=== PATIENT | male | born 1985 | race Caucasian/White ===

== ENCOUNTER 2021-09-15 12:11 | Emergency (ER) | payer OTHER ==
[~2021-09-15] VITALS: Ht 182.9 cm; Wt 96.2 kg
--- NOTE | 2021-09-15 12:25 | PHYS DOC ---
Adult General Chief Complaint Chief Complaint: CHEST PAIN HPI HPI Patient is a 36-year-old male presents to the emergency department complaining of left-sided chest pain without radiation he noticed when he woke up yesterday morning. Patient states he has been battling a month and a half long coughing s [place], states a month and a half ago he had severe body aches with nonproductive cough, runny nose, sore throat, all symptoms resolved after a few weeks however reports his cough has lingered on, worse at night. Reports his left-sided chest pain at a 4 out of 10, worse when he bends over or exhales deeply. Reports taking 400 mg of ibuprofen this morning at approximately 9 AM without relief. Denies shortness of breath, nasal or chest congestion, nausea, vomiting, diarrhea, diaphoretic episodes, dizzy spells or syncopal episodes. Patient does report having high blood pressure issues however has not been started on medications reporting when his blood pressure is scrutinized he always "falls under the threshold of starting medication ". Patient denies other physical complaints or physical concerns. Patient states he does not smoke cigarettes or ingest illicit drugs, occasional alcohol use. Denies medication allergies. Denies prescription medication at home. Review of Systems Review of Systems 14 body systems of review of systems have been reviewed. See HPI for pertinent positives and negative responses, otherwise all other systems are negative, nonpertinent or noncontributory. Constitutional: Negative except as outlined in HPI above. Skin: Negative except as outlined in HPI above. Eyes: Negative except as outlined in HPI above. HENT: Negative except as outlined in HPI above. Respiratory: Negative except as outlined in HPI above. Cardiovascular: Negative except as outlined in HPI above. GI: Negative except as outlined in HPI above. : Negative except as outlined in HPI above. Musculoskeletal: Negative except as outlined in HPI above. Integument: Negative except as outlined in HPI above. Neurologic: Negative except as outlined in HPI above. Endocrine: Negative except as outlined in HPI above. Lymphatic: Negative except as outlined in HPI above. Psychiatric: Negative except as outlined in HPI above. Allergies Allergies Allergies Coded Allergies Type Severity Reaction Last Updated Verified No Known Drug Allergies 09/15/21 No Physical Exam Physical Exam Constitutional: Well developed, well nourished, no acute distress, non-toxic appearance. 36-year-old male in no apparent distress. HENT: Normocephalic, atraumatic. Eyes: Conjunctiva normal, no discharge. Neck: Normal range of motion, no stridor. Cardiovascular: No cyanosis appreciated, distal cap refill less than 2 seconds. Heart sounds S1-S2 to auscultation. Lungs & Thorax: Patient is in no respiratory distress, no audible adventitious lung sounds appreciated. Lung sounds clear to auscultate all lung [place], no adventitious lung sounds appreciated. Normal work of breathing. Abdomen: Nontender, no abnormalities noted. Skin: Warm, dry, no erythema, no rash. Back: No tenderness, no deformities. Extremities: No tenderness, no cyanosis, no clubbing, ROM intact, no edema. Neurologic: Alert and oriented X 3, normal motor function, normal sensory function, no focal deficits noted. Psychologic: Affect normal, judgement normal, mood normal. Current Patient Data Vital Signs Vital Signs Date Time Temp Pulse Resp B/P (MAP) Pulse Ox O2 Delivery O2 Flow Rate FiO2 09/15/21 12:11 80 16 149/105 (120) 100 Room Air EKG EKG EKG performed at 1217 by ED nursing staff shows a normal sinus rhythm without ectopy heart rate 35 bpm, UT interval 0.156, QTc interval 0.402, no acute STEMI, no ACS, no acute ischemia appreciated, EKG interpreted by ED attending physician Dr. Jacques. Radiology/Procedures Radiology/Procedures PATIENT: HENRIETTA RODRIGUEZ ACCOUNT: [id number] : 1985 LOCATION: ER AGE: 36 SEX: M EXAM STATUS: REG ER ORD. PHYSICIAN: DENISSE RILEY APRN REASON: Chest pain PROCEDURE: CHEST AP ONLY AP chest. HISTORY: Chest pain AP view was taken of the chest. Lungs are clear. Heart is normal in size. There is no pleural effusion. IMPRESSION: 1. No acute infiltrates. Electronically signed by: Juanjose Silverman MD (09/15/2021 12:58 PM) [facility] Heart Score C/O Chest Pain: Yes HEART Score for Chest Pain: HEART Score for Chest Pain Response (Comments) Value History Slighlty/Non-Suspicious 0 ECG Normal 0 Age < 45 0 Risk Factors No Risk Factors 0 Troponin < Normal Limit 0 Total 0 Risk Factors: Risk Factors: DM, Current or recent (<one month) smoker, HTN, HLP, family history of CAD, obesity. Risk Scores: Risk Factors: DM, Current or recent (<one month) smoker, HTN, HLP, family history of CAD, obesity. Course & Med Decision Making Course & Med Decision Making Pertinent Labs and Imaging studies reviewed. (See chart for details) 36-year-old male, vital signs reviewed, resents emergency department concerning chest pain since waking up yesterday. Patient's physical examination is unremarkable, patient does have history of what seems to be a viral illness that started approximately a month and a half ago, as symptoms have resolved other than a lingering cough. Patient's chest pain is most likely musculoskeletal in nature however will order a cardiorespiratory work-up with D-dimer. Patient does have hypertensive initial blood pressure, patient does report a history of this however states he has not been started on blood pressure medications as his blood pressure seems to be "under the threshold "when blood pressure medications are considered by previous healthcare providers. ED planning to monitor blood pressure while labs are pending. Will give IV Toradol for chest pain of 4 out of 10. Upon reevaluation of the patient, patient blood pressure 145/91, discussed with patient follow-up with primary care regarding elevated blood pressure, patient reports his pain is now a 0 out of 10. Discussed with patient x-rays EKGs and lab work unremarkable and nonconcerning for acute cardiorespiratory process, a COVID-19 test is pending however very low likelihood of infection. Discussed with patient using [id number] ibuprofen for returning or ongoing chest discomfort, diagnosis of musculoskeletal chest wall pain most likely exacerbated by lingering cough from a viral illness 6 weeks ago. Patient gave verbal understanding of and is amenable to ED discharge planning. Strict follow-up with primary care, return to ER precautions or concerns. Discussed with the patient all findings and diagnostic testing as well as the need to follow-up with their primary care provider for further evaluation and treatment or return to the ED if any new or worsening symptoms. Strict return precautions were also discussed at length, the patient voiced understanding and agreement with the discharge planning. The patient was nontoxic in appearance, in no apparent distress, and hemodynamically stable at the time of disposition. Dragon Disclaimer Dragon Disclaimer This electronic medical record was generated, in whole or in part, using a voice recognition dictation system. Departure Departure: Impression: Primary Impression: Musculoskeletal chest pain Disposition: HOME / SELF CARE / HOMELESS Condition: GOOD Referrals: PIETER BARNHART (PCP) Patient Instructions: Chest Wall Pain Additional Instructions: You are seen today in the emergency department for chest pain that started yesterday. An extensive cardiorespiratory work-up was performed in the ER today, the results were reassuring that that you are not having a heart attack, pneumonia, or other cardiorespiratory process. There are no broken bones, no signs of infection in your blood. As we discussed, this is most likely a chest wall pain that has exacerbated from your viral illness earlier in the month. Please continue to take [id number]-[id number] ibuprofen for returning discomfort, follow-up with your primary care at the [facility] for ongoing chest discomfort and for evaluation of your elevated blood pressure problems. Return to the emergency department for worsening symptoms or other concerns. Thank you for visiting our Emergency Department. It was a pleasure taking care of you today in the emergency department and we appreciate you trusting us with your care. If any additional problems come up don't hesitate to return to visit us. Please follow up with your primary care provider so they can plan additional care if needed and know about the problem that you had. If symptoms worsen come back to the Emergency Department. Any concerning symptoms that start such as chest pain, shortness of air, weakness or numbness on one side of the body, running high fevers or any other concerning symptoms return to the ER. EMERGENCY DEPARTMENT GENERAL DISCHARGE INSTRUCTIONS Thank you for coming to [facility] (ED) today and trusting us with you care. We trust that you had a positivie experience in our Emergency Department. If you wish to speak to the department management, you may call the director at [phone]. YOUR FOLLOW UP INSTRUCTIONS ARE FOLLOWS: 1. Do you have a private Doctor? If you do not have a private doctor, please ask for a resource list of physicians or clinics that may be able to assist you with follow up care. 2. The Emergency Physician has interpreted your x-rays. The X-Ray specialist will also review them. If there is a change in the findings, you will be notified in 48 hours when at all possible. 3. A lab test or culture has been done, your results will be reviewed and you will be notified if you need a change in treatment. ADDITIONAL INSTRUCTIONS AND INFORMATION: 1. Your care today has been supervised by a physician who is specially trained in emergency care. Many problems require more than one evaluation for a complete diagnosis and treatment. We recommend that you schedule your follow up appointment as recomm ended to ensure complete treatment of you illness or injury. If you are unable to obtain follow up care and continue to have a problem, or if your condition worsens, we recommend that you return to the ED. 2. We are not able to safely determine your condition over the phone nor are we able to give sound medical advice over the phone. For these safety reasons, if you call for medical advice we will ask you to come to the ED for further evaluation. 3. If you have any questions regarding these discharge instructions please call the ED at [phone]. SAFETY INFORMATION: In the interest of safety, wellness, and injury prevention; we encourage you to wear your sealbelt, if you smoke; quite smoking, and we encourage family to use a protective helmet for bicycling and other sporting events that present an increased risk for head injury. IF YOUR SYMPTOMS WORSEN OR NEW SYMPTOMS DEVELOP, OR YOU HAVE CONCERNS ABOUT YOUR CONDITION; OR IF YOUR CONDITION WORSENS WHILE YOU ARE WAITING FOR YOUR FOLLOW UP APPOINTMENT; EITHER CONTACT YOUR PRIMARY CARE DOCTOR, THE PHYSICIAN WHOSE NAME AND NUMBER YOU WERE GIVEN, OR RETURN TO THE ED IMMEDIATELY. DENISSE RILEY APRN Sep 15, 2021 12:25
[2021-09-15] MEDS ORDERED: KETOROLAC 30 MG/ML VIAL. IVP ONE (12:45)
--- NOTE | 2021-09-15 13:01 | RAD ---
AP chest. HISTORY: Chest pain AP view was taken of the chest. Lungs are clear. Heart is normal in size. There is no pleural effusio n. IMPRESSION: 1. No acute infiltrates. Electronically signed by: Juanjose Silverman MD (09/15/2021 12:58 PM) [facility]
[2021-09-15 13:19] LABS: BASO % 1 % (0-3); EOS # 0.1 x10^3/uL (0.0-0.7); EOS % 1 % (0-3); HEMATOCRIT 46.6 % (39.0-53.0); HEMOGLOBIN 15.8 g/dL (13.0-17.5); LYMPH # 1.4 x10^3/uL (1.0-4.8); LYMPH % 32 % (24-48); MEAN CORPUSCULAR HEMOGLOBIN 32 pg (25-35); MEAN CORPUSCULAR HGB CONC 34 g/dL (31-37); MEAN CORPUSCULAR VOLUME 93 fL (79-100); MONO # 0.6 x10^3/uL (0.0-1.1); MONO % 13 % (0-9); NEUT # 2.4 x10^3uL (1.8-7.7); NEUT % 53 % (31-73); PLATELET COUNT 221 x10^3/uL (140-400); RED BLOOD COUNT 5.02 x10^6/uL (4.30-5.70); WHITE BLOOD COUNT 4.5 x10^3/uL (4.0-11.0)
[2021-09-15 13:30] LABS: CALCIUM 9.2 mg/dL (8.5-10.1); CREATININE 0.9 mg/dL (0.7-1.3)
[2021-09-15 13:40] VITALS: BP 148/101
[2021-09-15 13:45] LABS: ALBUMIN 4.1 g/dL (3.4-5.0); ALBUMIN/GLOBULIN RATIO 1.2 (1.0-1.7); TOTAL BILIRUBIN 0.5 mg/dL (0.2-1.0); TOTAL PROTEIN 7.6 g/dL (6.4-8.2)
--- NOTE | 2021-09-15 14:35 | EKG ---
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
== END 2021-09-15 14:08 | disposition home or self-care (01) ==
LOC: ER 12:11
DX: R07.89 Other chest pain (principal); Z20.822 Contact with and (suspected) exposure to COVID-19
CPT/HCPCS: 71045; 80053; 82553; 84484; 85025; 85379; 87426; 93005; 96374; 99285; C9803; J1885; U0003